=== PATIENT | male | born 1990 | race Hispanic/Latino ===

== ENCOUNTER 2017-12-26 02:01 | Emergency (ER) | payer OTHER ==
[2017-12-26 02:15] VITALS: BP 152/96; RESP 20; TEMP 98.5; O2SAT 100
[2017-12-26 03:00] LABS: BASO # 0.1 K/uL (0.0-0.2); EOS # 0.2 K/uL (0.0-0.7); HEMOGLOBIN 15.2 g/dL (12.0-18.0); LYMPH # 2.4 K/uL (1.0-4.3); LYMPH % 37.8 % (20.0-40.0); MEAN CELL VOLUME 101.7 fl (80.0-94.0); MEAN CORPUSCULAR HEMOGLOBIN 34.3 pg (27.0-31.0); MEAN CORPUSCULAR HGB CONC 33.7 g/dL (33.0-37.0); MEAN PLATELET VOLUME 9.8 fl (7.2-11.7); MONO # 0.6 K/uL (0.0-0.8); MONO % 9.5 % (0.0-10.0); NEUT # 3.1 K/uL (1.8-7.0); NEUT % 48.7 % (50.0-75.0); NRBC % 0.1 % (0.0-0.0); RBC 4.44 Mil/uL (4.40-5.90); RED CELL DISTRIBUTION WIDTH 14.5 % (11.5-14.5); WHITE BLOOD COUNT 6.4 K/uL (4.8-10.8)
[2017-12-26 03:01] LABS: BLOOD UREA NITROGEN 18 mg/dl (9-20); CALCIUM 9.7 mg/dL (8.4-10.2); GFR NON-AFRICAN AMERICAN > 60
--- NOTE | 2017-12-26 03:03 | ED PDOC ---
HPI: Chest Pain Time Seen by Provider: 12/26/17 02:16 Chief Complaint (Nursing): Chest Pain History Per: Patient History/Exam Limitations: no limitations Onset/Duration Of Symptoms: Mins Current Symptoms Are (Timing): Better Additional Complaint(s): 27 year old with no PMHx presenting with chest pain. States it occured at rest all of a sudden, L sided and radiated to L arm associated with sweats, shortness of breath, palpitations. States that he has been drinking daily and drank in excess over the weekend, states he drank the least amount today but still drank in the early afternoon, also admits to cocaine use over the weekend, excessive caffeine from coffee and pre-workout drinks, and stress over a new job. States he took ASA and his father's blood pressure medication prior to arrival. Currently denies chest pain. Past Medical History Reviewed: Historical Data, Nursing Documentation, Vital Signs Vital Signs: Last Vital Signs Temp 98.5 F 12/26/17 02:07 Pulse 70 12/26/17 02:07 Resp 20 12/26/17 02:07 BP 152/96 H 12/26/17 02:07 Pulse Ox 100 12/26/17 02:07 - Family History Family History: States: Hypertension - Allergies Allergies/Adverse Reactions: Allergies Allergy/AdvReac Type Severity Reaction Status Date / Time No Known Allergies Allergy Verified 12/26/17 02:07 Review of Systems ROS Statement: Except As Marked, All Systems Reviewed And Found Negative Constitutional: Positive for: Sweats Cardiovascular: Positive for: Chest Pain, Palpitations, Light Headedness Respiratory: Positive for: Shortness of Breath Physical Exam - Reviewed Nursing Documentation Reviewed: Yes Vital Signs Reviewed: Yes - Physical Exam Appears: Positive for: Well, Non-toxic, No Acute Distress Head Exam: Positive for: ATRAUMATIC, NORMAL INSPECTION, NORMOCEPHALIC Skin: Positive for: Normal Color, Warm, DRY Eye Exam: Positive for: EOMI, Normal appearance, PERRL ENT: Positive for: Normal ENT Inspection Neck: Positive for: Normal, Painless ROM Cardiovascular/Chest: Positive for: Regular Rate, Rhythm Respiratory: Positive for: CNT, Normal Breath Sounds Gastrointestinal/Abdominal: Positive for: Normal Exam, Soft Back: Positive for: Normal Inspection Extremity: Positive for: Normal ROM Neurologic/Psych: Positive 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 Negative for: Motor/Sensory Deficits - Laboratory Results Result Diagrams: 12/26/17 02:40 12/26/17 02:40 - ECG ECG Rhythm: Positive for: Normal QRS, Normal ST Segment, Sinus Rhythm Rate: 73 O2 Sat by Pulse Oximetry: 100 Pulse Ox Interpretation: Normal Medical Decision Making Medical Decision MakinAM Patient presenting with resolved chest pain, shortness of breath, palpitations --Currently calm, well appearing, normal vitals, normal EKG --Likely experiencing holiday heart given history and symptoms --Strongly advised lifestyle modification --Advised followup with PMD Disposition - Clinical Impression Clinical Impression: Palpitations - Disposition Referrals: [facility] [Outside] Disposition: Routine/Home Disposition Time: 03:29 Condition: GOOD Instructions: Palpitations, Anxiety, Adult (DC) Forms: [employer] (Estonian)
[2017-12-26 03:04] VITALS: PULSE 73
--- NOTE | 2017-12-26 11:23 | CARD ---
APPROVED REPORT Date of service: 12/26/2017 EKG Measurement Heart [id number] <Conclusion> Normal sinus rhythm with sinus arrhythmia Normal ECG
== END 2017-12-26 03:40 | disposition home or self-care (01) ==
LOC: H.ER 02:01
DX: R00.2 Palpitations (principal)